=== PATIENT | male | born 1990 | race Caucasian/White ===

== ENCOUNTER 2021-01-11 23:18 | Inpatient (IN) | payer OTHER ==
[~2021-01-11] VITALS: Ht 172.7 cm; Wt 76.2 kg
[~2021-01-11 23:18] MED LIST: AMLODIPINE BESYL5 MG PO; B-1100 MG PO; LISINOPRIL10 MG PO; MULTIVITAMINS1 EAC1 PO; PERCOCET 5-3251 EACH PO
[2021-01-12 00:51] LABS: HEMOGLOBIN 18.5 gm/dl (14.0-17.5); RED BLOOD COUNT 5.67 M/UL (4.20-5.50); WHITE BLOOD COUNT 14.4 K/UL (4.5-11.0)
[2021-01-12 01:04] LABS: BUN/CREATININE RATIO 19 (0-10)
--- NOTE | 2021-01-12 11:09 | NUR ---
RN NOTIFIED MD OF CONTINUED HYPERTENSION IN THIS PATIENT AFTER MEDICINAL INTERVENTION. MD STATED SHE WAS ON THE FLOOR AND WOULD SEE HIM.
[2021-01-13 07:01] LABS: HEMOGLOBIN 17.4 gm/dl (14.0-17.5); RED BLOOD COUNT 5.34 M/UL (4.20-5.50)
[2021-01-13 07:20] LABS: BUN/CREATININE RATIO 13 (0-10)
--- NOTE | 2021-01-13 23:55 | NUR ---
REPORT RECIEVED FROM CHERYL CLEMENTS RN AT 2315. PT STATED HE WAS IN PAIN.I TOLD HIM I WOULD BE BACK IN JUST A FEW MINUTES TO GIVE HIM SOMETHING FOR PAIN.
[2021-01-14 06:26] LABS: BUN/CREATININE RATIO 11 (0-10)
[2021-01-15 03:58] LABS: RED BLOOD COUNT 4.98 M/UL (4.20-5.50)
[2021-01-15 04:01] LABS: WHITE BLOOD COUNT 7.5 K/UL (4.5-11.0)
[2021-01-15 04:53] LABS: BUN/CREATININE RATIO 10 (0-10)
[2021-01-15] MEDS ORDERED: LISINOPRIL5 MG PO (15:22)
== END 2021-01-15 16:54 | disposition home or self-care (01) | DRG 440 ==
LOC: ER1 23:18 → CDU 01-12 03:08 → MED SURG 4 01-12 03:08
PROVIDERS: Family Medicine; Physician Assistant Medical; ADMIT Internal Medicine
DX: K85.20 Alcohol induced acute pancreatitis without necrosis or infection (principal); F10.10 Alcohol abuse, uncomplicated; I10 Essential (primary) hypertension; Z20.822 Contact with and (suspected) exposure to COVID-19
CPT/HCPCS: 36415; 80053; 80061; 83690; 83735; 84100; 85025; 85027; 96374; 96375; 96376; 99285; J0360; J1650; J1885; J2270; J2405; J3411; J3475; J7030; Q9967